=== PATIENT | male | born 1930 | race Caucasian/White ===

== ENCOUNTER 2016-09-10 10:11 | Inpatient (IN) | payer MEDICARE, OTHER ==
[~2016-09-10] VITALS: Ht 170.2 cm; Wt 100.0 kg
[2016-09-10 11:01] LABS: URINE BILIRUBIN NEGATIVE (NEGATIVE); URINE BLOOD TRACE (NEGATIVE); URINE GLUCOSE (UA) NORMAL (NORMAL); URINE KETONE NEGATIVE (NEGATIVE); URINE LEUKOCYTE ESTERASE 1+ (NEGATIVE); URINE NITRATE NEGATIVE (NEGATIVE); URINE PROTEIN TRACE (NEGATIVE); UROBILINOGEN NORMAL mg/dL (<1.0)
[2016-09-10 11:27] LABS: HEMATOCRIT 33.1 % (40-51); HEMOGLOBIN 11.5 g/dL (13.7-17.5); MEAN CORPUSCULAR HEMOGLOBIN 30.1 pg (27.0-33.0); MEAN CORPUSCULAR HGB CONC 34.7 g/dL (32.0-36.0); MEAN CORPUSCULAR VOLUME 86.6 fL (79-92); MEAN PLATELET VOLUME 10.6 fl (7.5-11.5); RED BLOOD COUNT 3.82 x10_6/uL (4.6-6.1); RED CELL DISTRIBUTION WIDTH 13.7 % (11.6-14.4); WHITE BLOOD COUNT 12.5 x10_3/uL (4.2-9.1)
[2016-09-10 11:40] LABS: ALBUMIN 3.7 gm/dL (3.4-5.0); ALKALINE PHOSPHATASE 63 U/L (50-136); ALT/SGPT 9 U/L (7.53-40.17); AST/SGOT 17 U/L (6.66-35.34); BILIRUBIN,TOTAL 0.52 mg/dL (0.0-1.0); BLOOD UREA NITROGEN 30 mg/dL (7-18); CALCIUM 9.1 mg/dL (8.7-10.7); CARBON DIOXIDE 26 mmol/L (21-32); CREATININE 1.1 mg/dL (0.6-1.3); GLUCOSE,RANDOM 79 mg/dL (70-99); POTASSIUM 4.5 mmol/L (3.5-5.1); SODIUM 134 mmol/L (136-145); TOTAL PROTEIN 6.7 gm/dL (6.4-8.2)
[2016-09-10 12:09] LABS: URINE BACTERIA TRACE (NONE SEEN); URINE RBC 0-5 /[HPF] (0-2); URINE SQUAMOUS EPITHELIAL CELL 0-10 /[HPF] (NONE SEEN)
[2016-09-11 07:13] LABS: HEMATOCRIT 29.9 % (40-51); HEMOGLOBIN 10.3 g/dL (13.7-17.5); MEAN CORPUSCULAR HEMOGLOBIN 30.1 pg (27.0-33.0); MEAN CORPUSCULAR HGB CONC 34.4 g/dL (32.0-36.0); MEAN CORPUSCULAR VOLUME 87.4 fL (79-92); MEAN PLATELET VOLUME 10.4 fl (7.5-11.5); RED BLOOD COUNT 3.42 x10_6/uL (4.6-6.1); RED CELL DISTRIBUTION WIDTH 13.3 % (11.6-14.4); WHITE BLOOD COUNT 12.4 x10_3/uL (4.2-9.1)
[2016-09-11 07:31] LABS: BLOOD UREA NITROGEN 33 mg/dL (7-18); CALCIUM 8.7 mg/dL (8.7-10.7); CARBON DIOXIDE 25 mmol/L (21-32); CREATININE 1.2 mg/dL (0.6-1.3); GLUCOSE,RANDOM 186 mg/dL (70-99); POTASSIUM 4.9 mmol/L (3.5-5.1); SODIUM 134 mmol/L (136-145)
[2016-09-15 06:27] LABS: CALCIUM 8.8 mg/dL (8.7-10.7); CREATININE 1.3 mg/dL (0.6-1.3); HEMATOCRIT 29.2 % (40-51); HEMOGLOBIN 10.1 g/dL (13.7-17.5); MEAN CORPUSCULAR HGB CONC 34.6 g/dL (32.0-36.0); MEAN CORPUSCULAR VOLUME 86.6 fL (79-92); MEAN PLATELET VOLUME 10.1 fl (7.5-11.5); RED BLOOD COUNT 3.37 x10_6/uL (4.6-6.1); RED CELL DISTRIBUTION WIDTH 13.5 % (11.6-14.4); WHITE BLOOD COUNT 10.9 x10_3/uL (4.2-9.1)
[2016-09-18 07:58] LABS: HEMATOCRIT 29.8 % (40-51); HEMOGLOBIN 10.5 g/dL (13.7-17.5); MEAN CORPUSCULAR HEMOGLOBIN 30.4 pg (27.0-33.0); MEAN CORPUSCULAR HGB CONC 35.2 g/dL (32.0-36.0); MEAN CORPUSCULAR VOLUME 86.4 fL (79-92); MEAN PLATELET VOLUME 10.1 fl (7.5-11.5); RED BLOOD COUNT 3.45 x10_6/uL (4.6-6.1); WHITE BLOOD COUNT 11.8 x10_3/uL (4.2-9.1)
[2016-09-18 08:25] LABS: CREATININE 1.4 mg/dL (0.6-1.3); POTASSIUM 4.8 mmol/L (3.5-5.1)
[2016-09-18 23:07] LABS: URINE BILIRUBIN NEGATIVE (NEGATIVE); URINE BLOOD TRACE (NEGATIVE); URINE GLUCOSE (UA) NORMAL (NORMAL); URINE KETONE NEGATIVE (NEGATIVE); URINE LEUKOCYTE ESTERASE TRACE (NEGATIVE); URINE NITRATE NEGATIVE (NEGATIVE); URINE PROTEIN NEGATIVE (NEGATIVE); UROBILINOGEN NORMAL mg/dL (<1.0)
[2016-09-18 23:45] LABS: URINE BACTERIA TRACE (NONE SEEN); URINE RBC 0-5 /[HPF] (0-2); URINE WBC 0-5 /[HPF] (0-3)
[2016-09-22 06:11] LABS: HEMATOCRIT 28.5 % (40-51); HEMOGLOBIN 9.9 g/dL (13.7-17.5); MEAN CORPUSCULAR HEMOGLOBIN 29.6 pg (27.0-33.0); MEAN CORPUSCULAR HGB CONC 34.7 g/dL (32.0-36.0); MEAN CORPUSCULAR VOLUME 85.3 fL (79-92); MEAN PLATELET VOLUME 9.4 fl (7.5-11.5); RED BLOOD COUNT 3.34 x10_6/uL (4.6-6.1); RED CELL DISTRIBUTION WIDTH 13.8 % (11.6-14.4); WHITE BLOOD COUNT 10.1 x10_3/uL (4.2-9.1)
[2016-09-22 06:34] LABS: CARBON DIOXIDE 22 mmol/L (21-32); CREATININE 1.2 mg/dL (0.6-1.3); GLUCOSE,RANDOM 108 mg/dL (70-99); POTASSIUM 4.6 mmol/L (3.5-5.1); SODIUM 136 mmol/L (136-145)
[2016-09-22 06:56] LABS: BLOOD UREA NITROGEN 26 mg/dL (7-18)
[2016-09-25 07:40] LABS: HEMATOCRIT 29.3 % (40-51); HEMOGLOBIN 9.9 g/dL (13.7-17.5); MEAN CORPUSCULAR HEMOGLOBIN 29.6 pg (27.0-33.0); MEAN CORPUSCULAR HGB CONC 33.8 g/dL (32.0-36.0); MEAN CORPUSCULAR VOLUME 87.7 fL (79-92); MEAN PLATELET VOLUME 10.2 fl (7.5-11.5); RED BLOOD COUNT 3.34 x10_6/uL (4.6-6.1); RED CELL DISTRIBUTION WIDTH 13.7 % (11.6-14.4); WHITE BLOOD COUNT 9.4 x10_3/uL (4.2-9.1)
[2016-09-25 07:58] LABS: CALCIUM 8.8 mg/dL (8.7-10.7); CREATININE 1.3 mg/dL (0.6-1.3); POTASSIUM 4.8 mmol/L (3.5-5.1)
[2016-09-29 06:34] LABS: HEMATOCRIT 28.3 % (40-51); HEMOGLOBIN 9.6 g/dL (13.7-17.5); MEAN CORPUSCULAR HEMOGLOBIN 29.5 pg (27.0-33.0); MEAN CORPUSCULAR HGB CONC 33.9 g/dL (32.0-36.0); MEAN CORPUSCULAR VOLUME 87.1 fL (79-92); MEAN PLATELET VOLUME 10.1 fl (7.5-11.5); RED BLOOD COUNT 3.25 x10_6/uL (4.6-6.1); RED CELL DISTRIBUTION WIDTH 13.8 % (11.6-14.4); WHITE BLOOD COUNT 8.3 x10_3/uL (4.2-9.1)
[2016-09-29 06:39] LABS: CALCIUM 8.8 mg/dL (8.7-10.7); CREATININE 1.3 mg/dL (0.6-1.3)
[2016-09-29 10:08] LABS: SERUM IRON 44 ug/dl (65-175); UIBC 149 ug/dL (135-370)
[2016-09-29 10:22] LABS: FOLATE 16.31 ng/mL (3.17-24.25)
[2016-10-02 07:39] LABS: HEMATOCRIT 29.8 % (40-51); HEMOGLOBIN 10.2 g/dL (13.7-17.5); MEAN CORPUSCULAR HEMOGLOBIN 29.8 pg (27.0-33.0); MEAN CORPUSCULAR HGB CONC 34.2 g/dL (32.0-36.0); MEAN CORPUSCULAR VOLUME 87.1 fL (79-92); MEAN PLATELET VOLUME 10.2 fl (7.5-11.5); RED BLOOD COUNT 3.42 x10_6/uL (4.6-6.1); WHITE BLOOD COUNT 7.7 x10_3/uL (4.2-9.1)
[2016-10-02 07:50] LABS: CALCIUM 8.9 mg/dL (8.7-10.7); CREATININE 1.4 mg/dL (0.6-1.3); POTASSIUM 5.3 mmol/L (3.5-5.1)
== END 2016-10-03 14:05 | disposition home or self-care (01) | DRG 558 ==
LOC: SWING 10:11
PROVIDERS: Family Medicine; ADMIT Family Medicine
DX: M62.50 Muscle wasting and atrophy, not elsewhere classified, unspecified site (principal); K62.5 Hemorrhage of anus and rectum; N39.0 Urinary tract infection, site not specified; C61 Malignant neoplasm of prostate; I10 Essential (primary) hypertension; E11.9 Type 2 diabetes mellitus without complications; I25.10 Atherosclerotic heart disease of native coronary artery without angina pectoris; Z95.810 Presence of automatic (implantable) cardiac defibrillator; K21.9 Gastro-esophageal reflux disease without esophagitis; Z96.641 Presence of right artificial hip joint; Z79.1 Long term (current) use of non-steroidal anti-inflammatories (NSAID); Z51.89 Encounter for other specified aftercare; E78.00 Pure hypercholesterolemia, unspecified; I50.9 Heart failure, unspecified; Z79.82 Long term (current) use of aspirin; Z79.899 Other long term (current) drug therapy; Z79.02 Long term (current) use of antithrombotics/antiplatelets; Z79.4 Long term (current) use of insulin
CPT/HCPCS: 36415; 80048; 80053; 80061; 81001; 82607; 82746; 82962; 83036; 83540; 83550; 87070; 87086; 87186; 94640; 94664; 97110; 97116; 97530; 99070; G0328-QW

== ENCOUNTER 2016-10-10 17:10 | Emergency (ER) | payer MEDICARE, OTHER ==
[2016-10-10 17:58] LABS: URINE BILIRUBIN NEGATIVE (NEGATIVE); URINE BLOOD TRACE (NEGATIVE); URINE KETONE NEGATIVE (NEGATIVE); URINE LEUKOCYTE ESTERASE TRACE (NEGATIVE); URINE NITRATE NEGATIVE (NEGATIVE); URINE PROTEIN TRACE (NEGATIVE); UROBILINOGEN NORMAL mg/dL (<1.0)
[2016-10-10 18:13] LABS: URINE GLUCOSE (UA) 1000 mg/dL (NORMAL); URINE RBC 0-5 /[HPF] (0-2); URINE WBC 0-5 /[HPF] (0-3)
== END 2016-10-10 18:18 | disposition home or self-care (01) ==
LOC: ER 17:10
PROVIDERS: Emergency Medicine
DX: R33.9 Retention of urine, unspecified (principal); Z85.46 Personal history of malignant neoplasm of prostate; I25.10 Atherosclerotic heart disease of native coronary artery without angina pectoris; Z79.899 Other long term (current) drug therapy
CPT/HCPCS: 81001; 99070; 99283

== ENCOUNTER 2016-11-15 12:24 | Emergency (ER) | payer MEDICARE, OTHER ==
[2016-11-15 13:11] LABS: URINE BILIRUBIN NEGATIVE (NEGATIVE); URINE BLOOD 2+ (NEGATIVE); URINE KETONE NEGATIVE (NEGATIVE); URINE LEUKOCYTE ESTERASE 2+ (NEGATIVE); URINE NITRATE NEGATIVE (NEGATIVE); URINE PROTEIN 1+ (NEGATIVE); UROBILINOGEN NORMAL mg/dL (<1.0)
[2016-11-15 13:13] LABS: URINE GLUCOSE (UA) 1000 mg/dL (NORMAL)
[2016-11-15 13:14] LABS: URINE BACTERIA FEW (NONE SEEN); URINE SQUAMOUS EPITHELIAL CELL 0-10 /[HPF] (NONE SEEN); URINE WBC TNTC /[HPF] (0-3)
[2016-11-15 13:19] LABS: BASO % 0.4 % (0.2-1.2); EOS # 0.3 10_X3_uL (0.0-0.5); EOS % 3.3 % (0.8-7.0); GRAN # 6.5 10_X3_uL (1.8-5.4); GRAN % 70.3 % (34.0-67.9); HEMATOCRIT 32.1 % (40-51); HEMOGLOBIN 10.7 g/dL (13.7-17.5); LYMPH # 1.7 10_X3_uL (1.3-3.6); LYMPH % 18.1 % (21.8-53.1); MEAN CORPUSCULAR HEMOGLOBIN 29.3 pg (27.0-33.0); MEAN CORPUSCULAR HGB CONC 33.3 g/dL (32.0-36.0); MEAN CORPUSCULAR VOLUME 87.9 fL (79-92); MEAN PLATELET VOLUME 10.7 fl (7.5-11.5); MONO # 0.7 10_X3_uL (0.3-0.8); MONO % 7.9 % (5.3-12.2); PLATELET COUNT 160 x10_3/uL (163-337); RED BLOOD COUNT 3.65 x10_6/uL (4.6-6.1); RED CELL DISTRIBUTION WIDTH 13.6 % (11.6-14.4); WHITE BLOOD COUNT 9.2 x10_3/uL (4.2-9.1)
[2016-11-15 13:37] LABS: ALBUMIN 3.3 gm/dL (3.4-5.0); ALKALINE PHOSPHATASE 65 U/L (50-136); ALT/SGPT 8 U/L (7.53-40.17); AMYLASE 35 U/L (15.62-74.58); AST/SGOT 13 U/L (6.66-35.34); CALCIUM 8.9 mg/dL (8.7-10.7); CARBON DIOXIDE 25 mmol/L (21-32); GLUCOSE,RANDOM 299 mg/dL (70-99); LIPASE 8 U/L (6.75-60.75); POTASSIUM 3.9 mmol/L (3.5-5.1); SODIUM 136 mmol/L (136-145); TOTAL PROTEIN 6.3 gm/dL (6.4-8.2)
[2016-11-15 14:27] LABS: BLOOD UREA NITROGEN 18 mg/dL (7-18)
== END 2016-11-15 15:54 | disposition home or self-care (01) ==
LOC: ER 12:24
PROVIDERS: General Practice
DX: K57.90 Diverticulosis of intestine, part unspecified, without perforation or abscess without bleeding (principal); R91.1 Solitary pulmonary nodule; N40.0 Benign prostatic hyperplasia without lower urinary tract symptoms; N39.0 Urinary tract infection, site not specified; E11.65 Type 2 diabetes mellitus with hyperglycemia; N26.1 Atrophy of kidney (terminal); K86.89 Other specified diseases of pancreas; Z79.899 Other long term (current) drug therapy; Z79.4 Long term (current) use of insulin
CPT/HCPCS: 36415; 80053; 81001; 82150; 83690; 85025; 87086; 87186; 96365; 96375; 99070; 99283-25; 99284

== ENCOUNTER 2016-11-16 14:52 | Emergency (ER) | payer MEDICARE, OTHER | END 2016-11-16 22:31 | disposition other institution (70) | LOC: ER 14:52 | DX: E86.0 Dehydration (principal); N39.0 Urinary tract infection, site not specified; R11.2 Nausea with vomiting, unspecified; E11.9 Type 2 diabetes mellitus without complications; I10 Essential (primary) hypertension; J44.9 Chronic obstructive pulmonary disease, unspecified; Z95.810 Presence of automatic (implantable) cardiac defibrillator; Z96.649 Presence of unspecified artificial hip joint; Z79.4 Long term (current) use of insulin; Z79.899 Other long term (current) drug therapy | CPT/HCPCS: 99284; 99284-25 ==

== ENCOUNTER 2016-11-16 14:52 | Inpatient (IN) | payer MEDICARE, OTHER ==
[~2016-11-16] VITALS: Ht 170.2 cm; Wt 96.0 kg
[2016-11-16 18:23] LABS: URINE BILIRUBIN NEGATIVE (NEGATIVE); URINE BLOOD TRACE (NEGATIVE); URINE GLUCOSE (UA) 250 mg/dL (NORMAL); URINE KETONE TRACE (NEGATIVE); URINE LEUKOCYTE ESTERASE TRACE (NEGATIVE); URINE NITRATE NEGATIVE (NEGATIVE); URINE PROTEIN 1+ (NEGATIVE)
[2016-11-16 18:26] LABS: BASO % 0.3 % (0.2-1.2); EOS # 0.1 10_X3_uL (0.0-0.5); EOS % 0.7 % (0.8-7.0); GRAN # 9.4 10_X3_uL (1.8-5.4); GRAN % 78.6 % (34.0-67.9); HEMATOCRIT 34.5 % (40-51); HEMOGLOBIN 11.6 g/dL (13.7-17.5); LYMPH # 1.6 10_X3_uL (1.3-3.6); MEAN CORPUSCULAR HEMOGLOBIN 29.4 pg (27.0-33.0); MEAN CORPUSCULAR HGB CONC 33.6 g/dL (32.0-36.0); MEAN CORPUSCULAR VOLUME 87.3 fL (79-92); MEAN PLATELET VOLUME 9.9 fl (7.5-11.5); MONO # 0.9 10_X3_uL (0.3-0.8); MONO % 7.4 % (5.3-12.2); PLATELET COUNT 171 x10_3/uL (163-337); RED BLOOD COUNT 3.95 x10_6/uL (4.6-6.1); RED CELL DISTRIBUTION WIDTH 13.6 % (11.6-14.4); WHITE BLOOD COUNT 11.9 x10_3/uL (4.2-9.1)
[2016-11-16 18:38] LABS: URINE RBC 0-5 /[HPF] (0-2); URINE WBC 0-5 /[HPF] (0-3)
[2016-11-16 18:45] LABS: ALBUMIN 3.6 gm/dL (3.4-5.0); ALKALINE PHOSPHATASE 65 U/L (50-136); ALT/SGPT 8 U/L (7.53-40.17); AST/SGOT 14 U/L (6.66-35.34); BILIRUBIN,TOTAL 0.46 mg/dL (0.0-1.0); BLOOD UREA NITROGEN 14 mg/dL (7-18); CALCIUM 8.8 mg/dL (8.7-10.7); CARBON DIOXIDE 26 mmol/L (21-32); CREATININE 0.9 mg/dL (0.6-1.3); GLUCOSE,RANDOM 201 mg/dL (70-99); POTASSIUM 4.1 mmol/L (3.5-5.1); SODIUM 140 mmol/L (136-145); TOTAL PROTEIN 6.5 gm/dL (6.4-8.2)
[2016-11-17 06:58] LABS: BASO % 0.4 % (0.2-1.2); EOS # 0.3 10_X3_uL (0.0-0.5); EOS % 2.8 % (0.8-7.0); GRAN # 6.4 10_X3_uL (1.8-5.4); GRAN % 66.2 % (34.0-67.9); HEMATOCRIT 32.1 % (40-51); HEMOGLOBIN 10.6 g/dL (13.7-17.5); LYMPH # 2.1 10_X3_uL (1.3-3.6); LYMPH % 21.8 % (21.8-53.1); MEAN CORPUSCULAR VOLUME 87.9 fL (79-92); MEAN PLATELET VOLUME 10.5 fl (7.5-11.5); MONO # 0.9 10_X3_uL (0.3-0.8); MONO % 8.8 % (5.3-12.2); PLATELET COUNT 171 x10_3/uL (163-337); RED BLOOD COUNT 3.65 x10_6/uL (4.6-6.1); RED CELL DISTRIBUTION WIDTH 13.7 % (11.6-14.4); WHITE BLOOD COUNT 9.7 x10_3/uL (4.2-9.1)
[2016-11-17 07:11] LABS: AHDL CHOLESTEROL 43 mg/dL (>40); BLOOD UREA NITROGEN 12 mg/dL (7-18); CALCIUM 8.4 mg/dL (8.7-10.7); CARBON DIOXIDE 24 mmol/L (21-32); CHOLESTEROL 236 mg/dL (0-200); CREATININE 0.8 mg/dL (0.6-1.3); GLUCOSE,RANDOM 168 mg/dL (70-99); LDL CHOLESTEROL 176 mg/dL (0-99); POTASSIUM 3.9 mmol/L (3.5-5.1); SODIUM 140 mmol/L (136-145); TRIGLYCERIDES 132 mg/dL (30-200)
[2016-11-17 10:23] LABS: CKMB 2.9 ng/ml (0.0-5.0)
[2016-11-17 10:25] LABS: TROP-I < 0.30 NG/ML (0.00-0.30)
[2016-11-17 16:14] LABS: TROP-I < 0.30 NG/ML (0.00-0.30)
[2016-11-17 22:18] LABS: TROP-I < 0.30 NG/ML (0.00-0.30)
[2016-11-18 03:57] LABS: HEMATOCRIT 32.8 % (40-51); MEAN CORPUSCULAR HEMOGLOBIN 29.4 pg (27.0-33.0); MEAN CORPUSCULAR HGB CONC 33.5 g/dL (32.0-36.0); MEAN CORPUSCULAR VOLUME 87.7 fL (79-92); MEAN PLATELET VOLUME 10.2 fl (7.5-11.5); RED BLOOD COUNT 3.74 x10_6/uL (4.6-6.1); RED CELL DISTRIBUTION WIDTH 13.7 % (11.6-14.4); WHITE BLOOD COUNT 10.3 x10_3/uL (4.2-9.1)
[2016-11-18 04:09] LABS: CKMB 2.9 ng/ml (0.0-5.0)
[2016-11-18 04:10] LABS: TROP-I < 0.30 NG/ML (0.00-0.30)
[2016-11-18 04:13] LABS: ALBUMIN 3.3 gm/dL (3.4-5.0); ALKALINE PHOSPHATASE 60 U/L (50-136); ALT/SGPT 8 U/L (7.53-40.17); AMYLASE 45 U/L (15.62-74.58); AST/SGOT 14 U/L (6.66-35.34); BILIRUBIN,TOTAL 0.32 mg/dL (0.0-1.0); BLOOD UREA NITROGEN 10 mg/dL (7-18); CALCIUM 8.4 mg/dL (8.7-10.7); CARBON DIOXIDE 22 mmol/L (21-32); CREATININE 0.9 mg/dL (0.6-1.3); GLUCOSE,RANDOM 116 mg/dL (70-99); LIPASE 8 U/L (6.75-60.75); POTASSIUM 4.1 mmol/L (3.5-5.1); SODIUM 138 mmol/L (136-145); TOTAL PROTEIN 5.8 gm/dL (6.4-8.2)
[2016-11-18 11:33] LABS: PH,URINE 6.5 (5.0 - 9.0); URINE BILIRUBIN NEGATIVE (NEGATIVE); URINE BLOOD TRACE (NEGATIVE); URINE GLUCOSE (UA) 250 mg/dL (NORMAL); URINE KETONE NEGATIVE (NEGATIVE); URINE LEUKOCYTE ESTERASE TRACE (NEGATIVE); URINE NITRATE NEGATIVE (NEGATIVE); URINE PROTEIN NEGATIVE (NEGATIVE); UROBILINOGEN NORMAL mg/dL (<1.0)
[2016-11-18 11:53] LABS: URINE RBC 0-5 /[HPF] (0-2); URINE SQUAMOUS EPITHELIAL CELL 0-10 /[HPF] (NONE SEEN)
[2016-11-18 11:54] LABS: URINE BACTERIA TRACE (NONE SEEN); URINE YEAST FEW (NONE SEEN)
[2016-11-19 06:29] LABS: ALKALINE PHOSPHATASE 55 U/L (50-136); ALT/SGPT 6 U/L (7.53-40.17); AST/SGOT 13 U/L (6.66-35.34); BILIRUBIN,TOTAL 0.31 mg/dL (0.0-1.0); BLOOD UREA NITROGEN 11 mg/dL (7-18); CALCIUM 8.5 mg/dL (8.7-10.7); CARBON DIOXIDE 23 mmol/L (21-32); CREATININE 0.9 mg/dL (0.6-1.3); GLUCOSE,RANDOM 142 mg/dL (70-99); POTASSIUM 4.4 mmol/L (3.5-5.1); SODIUM 140 mmol/L (136-145); TOTAL PROTEIN 5.6 gm/dL (6.4-8.2)
[2016-11-19 06:33] LABS: BASO % 0.4 % (0.2-1.2); EOS # 0.8 10_X3_uL (0.0-0.5); EOS % 7.8 % (0.8-7.0); GRAN # 5.6 10_X3_uL (1.8-5.4); HEMATOCRIT 31.9 % (40-51); HEMOGLOBIN 10.7 g/dL (13.7-17.5); LYMPH # 2.4 10_X3_uL (1.3-3.6); LYMPH % 24.9 % (21.8-53.1); MEAN CORPUSCULAR HEMOGLOBIN 29.7 pg (27.0-33.0); MEAN CORPUSCULAR HGB CONC 33.5 g/dL (32.0-36.0); MEAN CORPUSCULAR VOLUME 88.6 fL (79-92); MEAN PLATELET VOLUME 10.4 fl (7.5-11.5); MONO # 0.9 10_X3_uL (0.3-0.8); MONO % 8.9 % (5.3-12.2); PLATELET COUNT 148 x10_3/uL (163-337); RED CELL DISTRIBUTION WIDTH 13.7 % (11.6-14.4); WHITE BLOOD COUNT 9.6 x10_3/uL (4.2-9.1)
[2016-11-20 07:05] LABS: HEMATOCRIT 31.4 % (40-51); HEMOGLOBIN 10.6 g/dL (13.7-17.5); MEAN CORPUSCULAR HEMOGLOBIN 29.3 pg (27.0-33.0); MEAN CORPUSCULAR HGB CONC 33.8 g/dL (32.0-36.0); MEAN CORPUSCULAR VOLUME 86.7 fL (79-92); MEAN PLATELET VOLUME 10.7 fl (7.5-11.5); RED BLOOD COUNT 3.62 x10_6/uL (4.6-6.1); RED CELL DISTRIBUTION WIDTH 13.7 % (11.6-14.4); WHITE BLOOD COUNT 10.2 x10_3/uL (4.2-9.1)
[2016-11-20 07:29] LABS: ALKALINE PHOSPHATASE 57 U/L (50-136); ALT/SGPT 7 U/L (7.53-40.17); AST/SGOT 14 U/L (6.66-35.34); BILIRUBIN,TOTAL 0.34 mg/dL (0.0-1.0); BLOOD UREA NITROGEN 15 mg/dL (7-18); CALCIUM 8.4 mg/dL (8.7-10.7); CARBON DIOXIDE 22 mmol/L (21-32); CREATININE 0.9 mg/dL (0.6-1.3); GLUCOSE,RANDOM 143 mg/dL (70-99); POTASSIUM 4.2 mmol/L (3.5-5.1); SODIUM 137 mmol/L (136-145); TOTAL PROTEIN 5.5 gm/dL (6.4-8.2)
== END 2016-11-20 18:14 | disposition home or self-care (01) | DRG 690 ==
LOC: ER 14:52 → MS 22:31 → UNDODEPER 11-19 22:45 → MS 11-20 18:14
PROVIDERS: Emergency Medicine; ADMIT Family Medicine
DX: N39.0 Urinary tract infection, site not specified (principal); R11.2 Nausea with vomiting, unspecified; E86.0 Dehydration; I25.10 Atherosclerotic heart disease of native coronary artery without angina pectoris; B95.2 Enterococcus as the cause of diseases classified elsewhere; D72.829 Elevated white blood cell count, unspecified; R91.1 Solitary pulmonary nodule; K52.9 Noninfective gastroenteritis and colitis, unspecified; B96.89 Other specified bacterial agents as the cause of diseases classified elsewhere; G47.00 Insomnia, unspecified; I10 Essential (primary) hypertension; E11.9 Type 2 diabetes mellitus without complications; J44.9 Chronic obstructive pulmonary disease, unspecified; R10.30 Lower abdominal pain, unspecified; Z96.649 Presence of unspecified artificial hip joint; K57.30 Diverticulosis of large intestine without perforation or abscess without bleeding; N40.0 Benign prostatic hyperplasia without lower urinary tract symptoms; Z95.810 Presence of automatic (implantable) cardiac defibrillator; Z79.899 Other long term (current) drug therapy; Z79.4 Long term (current) use of insulin; Z95.1 Presence of aortocoronary bypass graft; Z80.9 Family history of malignant neoplasm, unspecified; Z82.49 Family history of ischemic heart disease and other diseases of the circulatory system
CPT/HCPCS: 36415; 80048; 80053; 80061; 81001; 82150; 82550; 82553; 82962; 83605; 83690; 85025; 87086; 87186; 96365; 96375; 99070; 99284; 99284-25; J7030

== ENCOUNTER 2017-01-03 12:13 | Inpatient (IN) | payer MEDICARE, OTHER ==
[~2017-01-03] VITALS: Ht 170.2 cm; Wt 98.0 kg
[2017-01-03 12:48] LABS: BASO % 0.3 % (0.2-1.2); EOS # 0.3 10_X3_uL (0.0-0.5); EOS % 2.6 % (0.8-7.0); GRAN % 75.6 % (34.0-67.9); HEMATOCRIT 31.9 % (40-51); HEMOGLOBIN 11.1 g/dL (13.7-17.5); LYMPH # 1.8 10_X3_uL (1.3-3.6); LYMPH % 14.7 % (21.8-53.1); MEAN CORPUSCULAR HGB CONC 34.8 g/dL (32.0-36.0); MEAN CORPUSCULAR VOLUME 86.2 fL (79-92); MEAN PLATELET VOLUME 10.3 fl (7.5-11.5); MONO # 0.8 10_X3_uL (0.3-0.8); MONO % 6.8 % (5.3-12.2); PLATELET COUNT 151 x10_3/uL (163-337); RED CELL DISTRIBUTION WIDTH 13.3 % (11.6-14.4)
[2017-01-03 13:04] LABS: ALBUMIN 3.2 gm/dL (3.4-5.0); ALKALINE PHOSPHATASE 62 U/L (50-136); ALT/SGPT 7 U/L (7.53-40.17); AMYLASE 76 U/L (15.62-74.58); AST/SGOT 13 U/L (6.66-35.34); BILIRUBIN,TOTAL 0.42 mg/dL (0.0-1.0); BLOOD UREA NITROGEN 14 mg/dL (7-18); CALCIUM 8.9 mg/dL (8.7-10.7); CARBON DIOXIDE 25 mmol/L (21-32); GLUCOSE,RANDOM 192 mg/dL (70-99); LIPASE 7 U/L (6.75-60.75); POTASSIUM 3.9 mmol/L (3.5-5.1); SODIUM 138 mmol/L (136-145); TOTAL PROTEIN 6.2 gm/dL (6.4-8.2)
[2017-01-03 13:24] LABS: URINE BACTERIA 2+ (NONE SEEN); URINE BILIRUBIN NEGATIVE (NEGATIVE); URINE BLOOD 2+ (NEGATIVE); URINE GLUCOSE (UA) 50 mg/dL (NORMAL); URINE KETONE NEGATIVE (NEGATIVE); URINE LEUKOCYTE ESTERASE 2+ (NEGATIVE); URINE NITRATE POSITIVE (NEGATIVE); URINE PROTEIN 2+ (NEGATIVE); URINE SQUAMOUS EPITHELIAL CELL 0-10 /[HPF] (NONE SEEN); URINE WBC TNTC WITH CLUMPING /[HPF] (0-3); URINE YEAST 1+ (NONE SEEN); UROBILINOGEN NORMAL mg/dL (<1.0)
[2017-01-04 07:53] LABS: AHDL CHOLESTEROL 44 mg/dL (>40); ALBUMIN 2.7 gm/dL (3.4-5.0); ALKALINE PHOSPHATASE 56 U/L (50-136); ALT/SGPT 6 U/L (7.53-40.17); AST/SGOT 13 U/L (6.66-35.34); BILIRUBIN,TOTAL 0.37 mg/dL (0.0-1.0); BLOOD UREA NITROGEN 10 mg/dL (7-18); CALCIUM 8.6 mg/dL (8.7-10.7); CARBON DIOXIDE 24 mmol/L (21-32); CHOLESTEROL 126 mg/dL (0-200); CREATININE 0.9 mg/dL (0.6-1.3); GLUCOSE,RANDOM 148 mg/dL (70-99); LDL CHOLESTEROL 68 mg/dL (0-99); POTASSIUM 4.1 mmol/L (3.5-5.1); SODIUM 139 mmol/L (136-145); TOTAL PROTEIN 5.6 gm/dL (6.4-8.2); TRIGLYCERIDES 114 mg/dL (30-200)
[2017-01-04 08:01] LABS: HEMATOCRIT 30.2 % (40-51); HEMOGLOBIN 10.3 g/dL (13.7-17.5); MEAN CORPUSCULAR HEMOGLOBIN 29.6 pg (27.0-33.0); MEAN CORPUSCULAR HGB CONC 34.1 g/dL (32.0-36.0); MEAN CORPUSCULAR VOLUME 86.8 fL (79-92); RED BLOOD COUNT 3.48 x10_6/uL (4.6-6.1); RED CELL DISTRIBUTION WIDTH 13.2 % (11.6-14.4); WHITE BLOOD COUNT 10.7 x10_3/uL (4.2-9.1)
[2017-01-05 07:10] LABS: HEMATOCRIT 30.7 % (40-51); HEMOGLOBIN 10.3 g/dL (13.7-17.5); MEAN CORPUSCULAR HEMOGLOBIN 29.3 pg (27.0-33.0); MEAN CORPUSCULAR HGB CONC 33.6 g/dL (32.0-36.0); MEAN CORPUSCULAR VOLUME 87.5 fL (79-92); RED BLOOD COUNT 3.51 x10_6/uL (4.6-6.1); WHITE BLOOD COUNT 9.7 x10_3/uL (4.2-9.1)
[2017-01-05 07:22] LABS: ALBUMIN 2.7 gm/dL (3.4-5.0); ALKALINE PHOSPHATASE 60 U/L (50-136); ALT/SGPT 7 U/L (7.53-40.17); AST/SGOT 13 U/L (6.66-35.34); BILIRUBIN,TOTAL 0.24 mg/dL (0.0-1.0); BLOOD UREA NITROGEN 11 mg/dL (7-18); CALCIUM 8.5 mg/dL (8.7-10.7); CARBON DIOXIDE 25 mmol/L (21-32); GLUCOSE,RANDOM 125 mg/dL (70-99); SODIUM 142 mmol/L (136-145); TOTAL PROTEIN 5.6 gm/dL (6.4-8.2)
[2017-01-06 06:42] LABS: HEMATOCRIT 30.7 % (40-51); HEMOGLOBIN 10.3 g/dL (13.7-17.5); MEAN CORPUSCULAR HEMOGLOBIN 29.3 pg (27.0-33.0); MEAN CORPUSCULAR HGB CONC 33.6 g/dL (32.0-36.0); MEAN CORPUSCULAR VOLUME 87.5 fL (79-92); MEAN PLATELET VOLUME 10.1 fl (7.5-11.5); RED BLOOD COUNT 3.51 x10_6/uL (4.6-6.1); RED CELL DISTRIBUTION WIDTH 13.3 % (11.6-14.4); WHITE BLOOD COUNT 10.1 x10_3/uL (4.2-9.1)
[2017-01-06 06:52] LABS: BLOOD UREA NITROGEN 9 mg/dL (7-18); CALCIUM 8.2 mg/dL (8.7-10.7); CARBON DIOXIDE 22 mmol/L (21-32); CREATININE 0.8 mg/dL (0.6-1.3); GLUCOSE,RANDOM 122 mg/dL (70-99); POTASSIUM 3.8 mmol/L (3.5-5.1); SODIUM 141 mmol/L (136-145)
[2017-01-07 06:38] LABS: ALBUMIN 2.5 gm/dL (3.4-5.0); ALKALINE PHOSPHATASE 50 U/L (50-136); ALT/SGPT 5 U/L (7.53-40.17); AST/SGOT 12 U/L (6.66-35.34); BILIRUBIN,TOTAL 0.43 mg/dL (0.0-1.0); BLOOD UREA NITROGEN 9 mg/dL (7-18); CALCIUM 8.3 mg/dL (8.7-10.7); CARBON DIOXIDE 23 mmol/L (21-32); CREATININE 0.8 mg/dL (0.6-1.3); GLUCOSE,RANDOM 179 mg/dL (70-99); POTASSIUM 3.9 mmol/L (3.5-5.1); SODIUM 138 mmol/L (136-145); TOTAL PROTEIN 5.3 gm/dL (6.4-8.2)
[2017-01-07 06:42] LABS: HEMATOCRIT 28.9 % (40-51); HEMOGLOBIN 9.9 g/dL (13.7-17.5); MEAN CORPUSCULAR HGB CONC 34.3 g/dL (32.0-36.0); MEAN CORPUSCULAR VOLUME 87.6 fL (79-92); RED BLOOD COUNT 3.3 x10_6/uL (4.6-6.1); RED CELL DISTRIBUTION WIDTH 13.2 % (11.6-14.4); WHITE BLOOD COUNT 9.3 x10_3/uL (4.2-9.1)
== END 2017-01-07 19:30 | disposition home or self-care (01) | DRG 690 ==
LOC: ER 12:13 → MS 16:09
PROVIDERS: General Practice; ADMIT Family Medicine
DX: N30.90 Cystitis, unspecified without hematuria (principal); C61 Malignant neoplasm of prostate; E11.9 Type 2 diabetes mellitus without complications; R10.30 Lower abdominal pain, unspecified; I10 Essential (primary) hypertension; R00.0 Tachycardia, unspecified; R36.9 Urethral discharge, unspecified; R41.0 Disorientation, unspecified; R11.2 Nausea with vomiting, unspecified; I51.9 Heart disease, unspecified; B95.62 Methicillin resistant Staphylococcus aureus infection as the cause of diseases classified elsewhere; B96.89 Other specified bacterial agents as the cause of diseases classified elsewhere; Z79.4 Long term (current) use of insulin; Z79.899 Other long term (current) drug therapy; Z95.1 Presence of aortocoronary bypass graft
CPT/HCPCS: 36415; 51702; 76705; 80048; 80053; 80061; 81001; 82150; 82962; 83036; 83690; 85025; 87040; 87070; 87086; 87186; 96374; 96376; 99070; 99284; 99285-25; J3370; J7040; Q9967

== ENCOUNTER 2017-01-03 12:13 | Emergency (ER) | payer MEDICARE, OTHER | END 2017-01-03 16:09 | disposition other institution (70) | LOC: ER 12:13 | DX: C61 Malignant neoplasm of prostate (principal); N12 Tubulo-interstitial nephritis, not specified as acute or chronic; N39.0 Urinary tract infection, site not specified; R31.9 Hematuria, unspecified; R80.9 Proteinuria, unspecified; R11.2 Nausea with vomiting, unspecified; M51.36 Other intervertebral disc degeneration, lumbar region; E66.9 Obesity, unspecified; R53.1 Weakness; R10.30 Lower abdominal pain, unspecified; Z79.899 Other long term (current) drug therapy; Z79.4 Long term (current) use of insulin | CPT/HCPCS: 36415; 51702; 80053; 81001; 82150; 82962; 83690; 85025; 87040; 87086; 87186; 96374; 96376; 99070; 99284; 99285-25; J7040; Q9967 ==